=== PATIENT | female | born 1985 | race Caucasian/White ===

== ENCOUNTER 2017-02-15 16:15 | Emergency (ER) | payer OTHER | END 2017-02-15 18:00 | disposition home or self-care (01) | LOC: ER 16:15 | DX: S33.9XXA Sprain of unspecified parts of lumbar spine and pelvis, initial encounter (principal); F17.210 Nicotine dependence, cigarettes, uncomplicated; Z90.711 Acquired absence of uterus with remaining cervical stump; Z88.0 Allergy status to penicillin; X50.3XXA Overexertion from repetitive movements, initial encounter | CPT/HCPCS: 96372; J2550 ==